=== PATIENT | female | born 2000 | race Caucasian/White ===

== ENCOUNTER 2021-03-06 19:35 | Emergency (ER) | payer OTHER, MEDICAID, SELFPAY ==
[2021-03-06 19:40] VITALS: BP 108/61; PULSE 80; RESP 18; TEMP 36.5; O2SAT 100; BMI 33.7
--- NOTE | 2021-03-06 19:54 | ED.ABDPAIN ---
HPI - Abdominal Pain General Chief Complaint: Urogenital-Female Stated Complaint: SO MANY KIDNEY STONES PAIN Time Seen by Provider: 03/06/21 19:48 History of Present Illness HPI narrative: Patient here with significant other. She patient is 18 weeks followed by [facility] in [place], Dr. alvarez, here for left flank pain no nausea vomiting or fever. Complains of hematuria starting this morning seen by urgent care [facility], ultrasound of the kidney shows renal stones. No prescriptions given. History kidney stone when she was 14 years of age Related Data Previous Rx's Medication Instructions Recorded cephalexin 500 mg capsule 500 mg PO QID #20 cap 03/06/21 hydrocodone 5 mg-acetaminophen 325 1 tab PO Q6H PRN #14 tab 03/06/21 mg tablet ondansetron 4 mg disintegrating 4 mg PO Q6H PRN #10 tab 03/06/21 tablet tamsulosin 0.4 mg capsule 0.4 mg PO DAILY #7 cap 03/06/21 Allergies Allergy/AdvReac Type Severity Reaction Status Date / Time No Known Drug Allergies Allergy Verified 03/06/21 20:59 Review of Systems Review of Systems Narrative: GENERAL: Denies chills, fatigue, malaise, fever, sweats. HEENT: Denies sinus pain, ear pain, sore throat RESPIRATORY: Denies dyspnea, cough CARDIOVASCULAR: Denies chest pain, palpitations GASTROINTESTINAL: Denies nausea, vomiting, abdominal pain, complains of left flank pain : Denies dysuria, frequency, complains hematuria MUSCULOSKELETAL: denies muscle or bony pain SKIN: Denies rash, skin lesions NEUROLOGIC: Denies weakness, numbness ROS Unobtainable: All systems reviewed & are unremarkable except as noted in HPI and below Patient History Social History Smoking Status: Never smoker Exam Narrative Exam Narrative: GENERAL: in no distress, not toxic not dyspneic HEAD: Normocephalic. NECK: Trachea midline. CARDIOVASCULAR: Regular rate and rhythm without murmurs RESPIRATORY: Clear to auscultation. Breath sounds equal bilaterally. No wheezes, rales, or rhonchi. GASTROINTESTINAL: Abdomen soft, non-tender, no CVA tenderness/no flank tenderness, no peritoneal signs BACK: No flank tenderness. NEURO: AOx4. SKIN: Warm and dry PSYCH: Not anxious, is cooperative Initial Vital Signs Initial Vital Signs: Vital Signs Temperature 97.7 F 03/06/21 19:40 Pulse Rate 80 03/06/21 19:40 Respiratory Rate 18 03/06/21 19:40 Blood Pressure 108/61 03/06/21 19:40 Pulse Oximetry 100 03/06/21 19:40 Course Course Course Narrative: No new issues during course of stay. Not toxic Orders Ordered: ED Orders 03/06/21 20:12 Urinalysis and Microscopic Stat 03/06/21 20:20 Complete Blood Count AUTO DIFF Stat Comprehensive Metabolic Panel Stat Discontinued Medications Hydrocodone Bitart/Acetaminophen (Hydrocodone/Acet 5/325 Tablet) 2 tab PO NOW ONE Stop: 03/06/21 20:30 Last Admin: 03/06/21 20:36 Dose: 1 tab Documented by: ABHISHEK Hydrocodone Bitart/Acetaminophen (Hydrocodone/Acet 5/325 Prepack) 1 bottle MISC SEEINSTR ONE Stop: 03/06/21 21:41 Last Admin: 03/06/21 21:46 Dose: 1 bottle Documented by: MAGGIE Cephalexin HCl (Cephalexin 250 Mg Capsule) 500 mg PO NOW ONE Stop: 03/06/21 20:53 Last Admin: 03/06/21 21:03 Dose: 500 mg Documented by: ABHISHEK Ondansetron HCl (Ondansetron 4 Mg Odt) 4 mg SL NOW ONE Stop: 03/06/21 20:30 Last Admin: 03/06/21 20:36 Dose: 4 mg Documented by: ABHISHEK Ondansetron HCl (Ondansetron 4 Mg Odt Prepack) 1 bottle MISC SEEINSTR ONE Stop: 03/06/21 21:41 Last Admin: 03/06/21 21:46 Dose: 1 bottle Documented by: MAGGIE Tamsulosin HCl (Tamsulosin 0.4 Mg Capsule) 0.4 mg PO NOW ONE Stop: 03/06/21 20:53 Last Admin: 03/06/21 21:03 Dose: 0.4 mg Documented by: ABHISHEK Reevaluation(s) Reevaluation #1: Reviewed with patient results and treatment plan. She agrees with follow-up with Urology and OBGYN Time: 20:53 Consultations Consultation #1: s/w dr santiago, ob oncall for dr alvarez, agrees with hydrocodone, Zofran, Flomax, Keflex. Patient to call Dr. alvarez office in the morning for recheck this week. Time: 20:54 Consultation #2: Spoke with Urology, Dr. Keen, she agrees with treatment plan. Patient to follow-up tomorrow for progress and update Time: 21:27 Vital Signs Vital signs: Vital Signs - 8 hr 03/06/21 19:40 03/06/21 21:52 Temperature 97.7 F Pulse Rate 80 80 Respiratory Rate 18 18 Blood Pressure 108/61 115/78 Pulse Oximetry 100 100 MDM - Abdominal Pain Differential Diagnosis Differential diagnosis: Likely other (Pyelonephritis/ureteral stone/UTI) Medical Records Medical records narrative: Ultrasound faxed over from [facility]. Pelvic ultrasound transvaginal impression single living intrauterine gestation. No acute process. Renal ultrasound from [facility] faxed impression mild left hydronephrosis. No right hydronephrosis. No suspicious solid masses or lesions. Lab Data Result diagrams: 03/06/21 20:20 03/06/21 20:20 Labs: Lab Results 03/06/21 03/06/21 03/06/21 Range/Units 20:12 20:20 20:20 WBC 9.2 (4.5-11.0) X10^3/uL RBC 4.67 (4.0-5.2) X10^6/uL Hgb 12.7 (12.0-16.0) g/dL Hct 37.8 (36-46) % MCV 81.0 (80-100) fL MCH 27.2 (26-34) PG MCHC 33.6 (30-36) % RDW 13.7 (11.6-14.8) % Plt Count 319 (150-400) X10^3/uL Neut % (Auto) 72.2 (50-75) % Lymph % (Auto) 19.0 L (25-40) % [place] % (Auto) 6.6 (3-14) % Eos % (Auto) 1.1 L (2-4) % Baso % (Auto) 1.1 (0-2) % Neut # (Auto) 6600 (7715-6570) /uL Lymph # (Auto) 1800 (3612-1372) /uL [place] # (Auto) 600 (0-900) /uL Eos # (Auto) 100 (0-450) /uL Baso # (Auto) 100 (0-100) /uL Sodium 135 L (137-145) mmol/L Potassium 3.8 (3.4-5.1) mmol/L Chloride 107 (98-107) mmol/L Carbon Dioxide 23 (22-32) mmol/L BUN 8 (7-17) mg/dL Creatinine 0.49 L (0.52-1.04) mg/dL Estimated GFR > 60.0 (>60) mL/min BUN/Creatinine Ratio 16.3 (6-22) Glucose 87 (70-100) mg/dL Calcium 9.1 (8.4-10.2) mg/dL Total Bilirubin 0.2 (0.2-1.3) mg/dL AST 19 (14-36) IU/L ALT 18 (<35) IU/L Alkaline Phosphatase 86 (38-126) U/L Total Protein 6.9 (6.3-8.2) g/dL Albumin 3.7 (3.5-5.0) g/dL Globulin 3.2 (1.7-4.1) g/dL Albumin/Globulin Ratio 1.2 (1.0-2.8) Urine Color Yellow Urine Appearance Cloudy Urine pH 7.0 (4.5-8.0) Ur Specific [place] 1.020 (1.000-1.035) Urine Protein Trace H (Negative) Urine Glucose (UA) Trace H (Negative) g/dL Urine Ketones Negative (NEGATIVE) Urine Occult Blood 3+ H (Negative) Urine Nitrate Negative (Negative) Urine Bilirubin Negative (NEGATIVE) Urine Urobilinogen 0.2 (0.2) E.U./dL Ur Leukocyte Esterase 1+ H (NEGATIVE) Urine RBC 30-100/hpf H (0-5/HPF) Urine WBC 0-1/hpf (0-5/HPF) Ur Squamous Epith Cells 10-30 /hpf H (0-5/HPF) Amorphous Sediment 1+ Urine Bacteria Few (2-10) H (None) Ur Culture Indicated? Cult not indicated MDM Narrative Medical decision making narrative: Appropriate for discharge home. Patient and on-call OBGYN degrees no CT scan imaging at this time given gestation at 18 weeks. Treat clinic for kidney stone/ureteral stone., no fever. White cell count normal. Likely not infected kidney stone. No pyelonephritis. No CVA tenderness. Return precautions reviewed patient. Not toxic at discharge. Pain controlled. Discharge Plan Departure Patient Disposition: Home Clinical Impression: Flank pain Instructions: DI for Kidney Infection, DI for Kidney Stones Activity Restrictions/Additional Instructions: No driving or operating machinery tonight or when taking prescribed pain medication. Call your OBGYN office in the morning for office recheck this week. Call provided urology office tomorrow for office recheck of your flank pain/possible kidney stone. Return if worse if any questions concerns or any fever vomiting or increase back pain. Prescriptions: New tamsulosin 0.4 mg capsule 0.4 mg PO DAILY Qty: 7 RF: 0 cephalexin 500 mg capsule 500 mg PO QID Qty: 20 RF: 0 hydrocodone-acetaminophen 5-325 mg tablet 1 tab PO Q6H PRN (Reason: pain) Qty: 14 RF: 0 ondansetron 4 mg tablet,disintegrating 4 mg PO Q6H PRN (Reason: nausea and vomiting) Qty: 10 RF: 0 Referrals: Maureen Randhawa MD [Non-Staff] - Stand Alone Forms: Work Release Note
[2021-03-06 20:13] LABS: Appearance Urine UA CLOUDY; Bilirubin Urine UA NEGATIVE (NEGATIVE); Color Urine UA YELLOW; Glucose Urine UA TRACE g/dL (Negative); Ketones Urine UA NEGATIVE (NEGATIVE); Leukocyte Esterase Urine UA 1+ (NEGATIVE); Nitrite Urine UA NEGATIVE (Negative); Occult Blood Urine UA 3+ (Negative); Protein Urine UA TRACE (Negative); Urobilinogen Urine UA 0.2 E.U./dL (0.2)
[2021-03-06 20:22] LABS: Amorphous Sediment Urine 1+; Bacteria Urine Few (2-10); Culture Indicated Urine Cult Not Indicated; RBC Urine 30-100/HPF (0-5/HPF); Squamous Epithelial Cell Urine 10-30 /HPF (0-5/HPF); WBC Urine 0-1/HPF (0-5/HPF)
[2021-03-06 20:30] LABS: Add Manual Diff / Slide Review NO; Basophils Absolute Auto 100 /uL (0-100); Basophils Percent Auto 1.1 % (0-2); Eosinophils Absolute Auto 100 /uL (0-450); Eosinophils Percent Auto 1.1 % (2-4); Hematocrit 37.8 % (36-46); Hemoglobin 12.7 g/dL (12.0-16.0); Lymphocytes Absolute Auto 1800 /uL (1100-4500); Mean Corpuscular HGB Conc 33.6 % (30-36); Mean Corpuscular Hemoglobin 27.2 PG (26-34); Monocytes Absolute Auto 600 /uL (0-900); Monocytes Percent Auto 6.6 % (3-14); Neutrophils Absolute Auto 6600 /uL (1500-7000); Neutrophils Percent Auto 72.2 % (50-75); Platelet Count 319 X10^3/uL (150-400); Red Blood Cell Count 4.67 X10^6/uL (4.0-5.2); Red Cell Distribution Width 13.7 % (11.6-14.8); White Blood Cell Count 9.2 X10^3/uL (4.5-11.0)
[2021-03-06] MEDS: HYDROCODONE/ACET 5/325 TABLET 2 TAB PO (20:36)
[2021-03-06] MEDS: ONDANSETRON 4 MG ODT SL (20:36)
[2021-03-06 20:42] LABS: Alanine Aminotransferase 18 IU/L (<35); Albumin 3.7 g/dL (3.5-5.0); Albumin Globulin Ratio 1.2 (1.0-2.8); Alkaline Phosphatase 86 U/L (38-126); Aspartate Aminotransferase 19 IU/L (14-36); BUN Creatinine Ratio 16.3 (6-22); Bilirubin Total 0.2 mg/dL (0.2-1.3); Blood Urea Nitrogen 8 mg/dL (7-17); Calcium 9.1 mg/dL (8.4-10.2); Carbon Dioxide 23 mmol/L (22-32); Chloride 107 mmol/L (98-107); Estimated Glomerular Filt Rate > 60.0 mL/min (>60); Globulin 3.2 g/dL (1.7-4.1); Glucose 87 mg/dL (70-100); HEMOLYSIS < 15 (0-50); Potassium 3.8 mmol/L (3.4-5.1); Sodium 135 mmol/L (137-145); Total Protein 6.9 g/dL (6.3-8.2)
[2021-03-06] MEDS: cephALEXin 250 MG CAPSULE 500 MG PO (21:03)
[2021-03-06] MEDS: TAMSULOSIN 0.4 MG CAPSULE PO (21:03)
--- NOTE | 2021-03-06 21:03 | PC.NURSE ---
Cleared with Dr. Millard that all meds were safe with . He okayed
[2021-03-06] MEDS: HYDROCODONE/ACET 5/325 PREPACK 1 BOTTLE MISC (21:46)
[2021-03-06] MEDS: ONDANSETRON 4 MG ODT PREPACK 1 BOTTLE MISC (21:46)
[2021-03-06 21:52] VITALS: BP 115/78; PULSE 80; RESP 18; O2SAT 100
== END 2021-03-06 21:53 | disposition home or self-care (01) ==
PROVIDERS: Emergency Provider Emergency Medicine
DX: O26.892 Other specified pregnancy related conditions, second trimester (principal); R10.9 Unspecified abdominal pain; Z3A.18 18 weeks gestation of pregnancy
CPT/HCPCS: 36415; 80053; 81001; 85025; 99283

== ENCOUNTER → 2021-03-10 16:45 | Outpatient (CLI) | payer OTHER, MEDICAID, SELFPAY | PROVIDERS: Visit Provider Nurse Practitioner | DX: R10.9 Unspecified abdominal pain (principal) | CPT/HCPCS: 87086 ==

== ENCOUNTER 2021-04-27 11:16 | Emergency (ER) | payer OTHER, MEDICAID, SELFPAY ==
[2021-04-27 11:43] LABS: Bacteria Urine None Seen; Culture Indicated Urine Cult Not Indicated; RBC Urine 1-5/HPF (0-5/HPF); Squamous Epithelial Cell Urine 1-5 /HPF (0-5/HPF); WBC Urine 0-1/HPF (0-5/HPF)
[2021-04-27 11:46] VITALS: BP 142/65; PULSE 101; RESP 18; TEMP 36.6; O2SAT 98; BMI 34.9
--- NOTE | 2021-04-27 12:00 | ED.BACK ---
HPI - Back Pain/Injury General Chief Complaint: Back Pain/Injury Stated Complaint: Lower back pain/26 weeks x14 days Time Seen by Provider: 04/27/21 11:48 Source: patient Mode of arrival: Ambulatory History of Present Illness HPI Narrative: Patient is a 20-year-old female. Here for evaluation of right lower back discomfort. Patient states it has been going on for the past 2 weeks. She is a at 26 weeks . No urinary symptoms. No vaginal bleeding. No fevers. No nausea vomiting. No change in bowel habits. No skin changes. He states that the pain in her lower back is been worsening and she has episodes where the pain becomes so much that she cannot stand. She has been taking Tylenol without any improvement. She states that she was recently diagnosed with kidney stones. This is based off of having blood in her urine and also an ultrasound which showed ?inflammation? in her right kidney. She states that the discomfort she is having now is different than the discomfort that she was having at that time. Related Data Previous Rx's Medication Instructions Recorded cephalexin 500 mg capsule 500 mg PO QID #20 cap 03/06/21 hydrocodone 5 mg-acetaminophen 325 1 tab PO Q6H PRN #14 tab 03/06/21 mg tablet ondansetron 4 mg disintegrating 4 mg PO Q6H PRN #10 tab 03/06/21 tablet tamsulosin 0.4 mg capsule 0.4 mg PO DAILY #7 cap 03/06/21 hydrocodone 5 mg-acetaminophen 325 1 tab PO Q4-6H PRN #7 tab 04/27/21 mg tablet Allergies Allergy/AdvReac Type Severity Reaction Status Date / Time No Known Drug Allergies Allergy Verified 03/10/21 16:59 Review of Systems Gastrointestinal Gastrointestinal: Reports as per HPI and Reports system reviewed and no additional complaints, except as documented Genitourinary Genitourinary: Reports system reviewed and no additional complaints, except as documented and Reports as per HPI Musculoskeletal Musculoskeletal: Reports system reviewed and no additional complaints, except as documented and Reports as per HPI Integumentary/Breasts Skin/Breast: Reports system reviewed and no additional complaints, except as documented and Reports as per HPI Neurologic Neurologic: Reports system reviewed and no additional complaints, except as documented Hematologic/Lymphatic On Anticoagulants: No Patient History Medical History Renal calculi Social History Smoking Status: Never smoker Smoking Status: Never smoker alcohol intake frequency: other Substance Use Type: does not use Exam Initial Vital Signs Initial Vital Signs: Vital Signs Temperature 98 F 04/27/21 11:46 Pulse Rate 101 H 04/27/21 11:46 Respiratory Rate 18 04/27/21 11:46 Blood Pressure 142/65 H 04/27/21 11:46 Pulse Oximetry 98 04/27/21 11:46 HENMT Head: normal to inspection and normocephalic Resp Effort & Inspection: normal respiratory effort Cardio Rate: regular rate GI Palpation: soft and No tender Back/Spine/Pelvis Back: No CVA tenderness Other: Tenderness along the SI joint on the right. Skin General: no rashes or lesions noted Neuro General: patient alert, patient awake and moves all extremities Gait: normal gait Motor: muscle tone normal throughout Extrem General: normal to inspection and capillary refill normal Psych Appearance: grossly normal Course Orders Ordered: ED Orders 04/27/21 11:35 Urine Microscopic Stat 04/27/21 11:36 Urine Microscopic Stat Vital Signs Vital signs: Vital Signs - 8 hr 04/27/21 11:46 Temperature 98 F Pulse Rate 101 H Respiratory Rate 18 Blood Pressure 142/65 H Pulse Oximetry 98 MDM - Back Pain/Injury Lab Data Labs: Lab Results 04/27/21 Range/Units 11:36 Urine RBC 1-5/hpf D (0-5/HPF) Urine WBC 0-1/hpf (0-5/HPF) Ur Squamous Epith Cells 1-5 /hpf D (0-5/HPF) Urine Bacteria None seen (None) Ur Culture Indicated? Cult not indicated Urine Dip Bedside Urine Glucose Negative Bedside Urine Bilirubin - Negative Bedside Urine Ketone - Negative Urine Specific [place] 1.020 Bedside Urine Occult Blood ++ Bedside Urine pH 6.5 Bedside Urine Protein - Negative Bedside Urine Urobilinogen - Negative Bedside Urine Nitrite - Negative Bedside Urine Leukocytes - Negative Esterase MDM Narrative Medical decision making narrative: I have low suspicion that this is a urinary tract infection, low suspicion for pyelonephritis. Low suspicion for pre term labor. I have a high suspicion that this is musculoskeletal in origin. She has been taking Tylenol. She states that she cannot stand because of the discomfort. We did discuss the limitations on the medications that she can take. I told her that this could potentially worsened throughout her . I will send her home with a very short course of opioid pain medication. She understands the risks of this. She will keep all of her scheduled OB appointments. She was given return precautions. She expressed understanding and agreement. Discharge Plan Departure Patient Disposition: Home Clinical Impression: Back pain affecting Instructions: DI for Low Back Pain Activity Restrictions/Additional Instructions: Unfortunately because of your status your limited on the medications that you can take. The medication your prescribed today does cross the placenta an your baby will be exposed to the opioid medication. The prescription was electronically transmitted to [facility] in [place]. This needs to be used in a very limited means and I would recommend that you talk with your primary post tensioning ironworker about this. Any long-term work related restrictions will need to come from either your primary doctor or your OB provider. Prescriptions: New hydrocodone-acetaminophen 5-325 mg tablet 1 tab PO Q4-6H PRN (Reason: pain) Qty: 7 RF: 0 No Action tamsulosin 0.4 mg capsule 0.4 mg PO DAILY Qty: 7 RF: 0 cephalexin 500 mg capsule 500 mg PO QID Qty: 20 RF: 0 hydrocodone-acetaminophen 5-325 mg tablet 1 tab PO Q6H PRN (Reason: pain) Qty: 14 RF: 0 ondansetron 4 mg tablet,disintegrating 4 mg PO Q6H PRN (Reason: nausea and vomiting) Qty: 10 RF: 0 Referrals: Omar Amaro MD [Primary Care Provider] -
[2021-04-27 12:24] VITALS: BP 139/72; PULSE 68; RESP 12; O2SAT 98
== END 2021-04-27 12:25 | disposition home or self-care (01) ==
PROVIDERS: Emergency Provider Emergency Medicine; PCP Obstetrics & Gynecology
DX: O26.892 Other specified pregnancy related conditions, second trimester (principal); M54.50 Low back pain, unspecified; Z3A.26 26 weeks gestation of pregnancy
CPT/HCPCS: 81003; 81015; 99282

== ENCOUNTER 2021-04-29 02:54 | Emergency (ER) | payer OTHER, MEDICAID, SELFPAY ==
[2021-04-29 03:03] VITALS: BP 144/94; PULSE 94; RESP 17; TEMP 36.4; O2SAT 98; BMI 35.7
--- NOTE | 2021-04-29 03:15 | ED.BACK ---
HPI - Back Pain/Injury General Chief Complaint: Back Pain/Injury Stated Complaint: low back pain x2 weeks Time Seen by Provider: 04/29/21 03:14 Source: patient Mode of arrival: Ambulatory Limitations: no limitations History of Present Illness HPI Narrative: This is a 20-year-old female at 26 weeks with complaint of low back pain. Patient has had worsening back pain in her lower lumbar region for the past several weeks. She has had remote issues with back pain but not persistently. Patient states pain is been slowly worsening it is localized to just above the sacrum. It feels like a burning type sensation. She finds some relief when she bends forward. Patient denies any radiation of pain into her lower extremities. No loss of bowel or bladder control. No numbness, tingling or weakness. She denies any flank pain. No dysuria, urgency or frequency. No other GI or urinary symptoms. No radiation of pain to the front or anterior. Does not cramping in nature. Patient has had Galt which has been mildly helpful. She has tried Tylenol as well which is sometimes helpful. 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 She states they were quite large and ?pushing on things and ?. She has not had any other back surgeries. She denies any other daily medications. No known drug allergies. Related Data Previous Rx's Medication Instructions Recorded cephalexin 500 mg capsule 500 mg PO QID #20 cap 03/06/21 hydrocodone 5 mg-acetaminophen 325 1 tab PO Q6H PRN #14 tab 03/06/21 mg tablet ondansetron 4 mg disintegrating 4 mg PO Q6H PRN #10 tab 03/06/21 tablet tamsulosin 0.4 mg capsule 0.4 mg PO DAILY #7 cap 03/06/21 hydrocodone 5 mg-acetaminophen 325 1 tab PO Q4-6H PRN #7 tab 04/27/21 mg tablet Allergies Allergy/AdvReac Type Severity Reaction Status Date / Time No Known Drug Allergies Allergy Verified 03/10/21 16:59 Review of Systems Review of Systems ROS Unobtainable: All systems reviewed & are unremarkable except as noted in HPI and below Patient History Medical History Renal calculi Social History Smoking Status: Never smoker Smoking Status: Never smoker alcohol intake frequency: other Substance Use Type: does not use Exam Narrative Exam Narrative: GENERAL: Alert and oriented x three, female in mild distress. HEENT: Head normocephalic, atraumatic, EOMI, pupils reactive, face symmetric, moist mucous membranes NECK: Supple, full range of motion CARDIOVASCULAR: Regular rate and rhythm without murmurs, rubs or gallops. RESPIRATORY: Breath sounds equal bilaterally, no wheezes rales or rhonchi. ABDOMEN: Soft, nontender. Normoactive bowel sounds all 4 quadrants. No guarding or rebound, rigidity, no mass. Gravid. Age appropriate for dates. : No CVA tenderness BACK: No cervical, thoracic or lumbar vertebral point tenderness. Patient has some mild tenderness just the left the lumbosacral joint. No warmth, erythema or other changes. Has normal range of motion. Patient's gait is normal. Muscle strength is 5/5 in lower extremities. Neurovascularly intact. EXTREMITIES: Normal range of motion, no clubbing or edema. Neurovascularly intact NEUROLOGICAL: Cranial nerves II through XII grossly intact. Moving all extremities SKIN: Warm, dry, no petechiae, no rashes or lesions. Initial Vital Signs Initial Vital Signs: Vital Signs Temperature 97.5 F L 04/29/21 03:03 Pulse Rate 94 H 04/29/21 03:03 Respiratory Rate 17 04/29/21 03:03 Blood Pressure 144/94 H 04/29/21 03:03 Pulse Oximetry 98 04/29/21 03:03 Course Orders Ordered: Discontinued Medications Hydrocodone Bitart/Acetaminophen (Hydrocodone/Acet 5/325 Prepack) 1 bottle [facility] SEE[facility] ONE Stop: 04/29/21 03:44 Last Admin: 04/29/21 03:51 Dose: 1 bottle Documented by: HEATHER Vital Signs Vital signs: Vital Signs - 8 hr 04/29/21 03:03 04/29/21 03:58 Temperature 97.5 F L Pulse Rate 94 H 98 H Respiratory Rate 17 20 Blood Pressure 144/94 H 138/89 Pulse Oximetry 98 98 MDM - Back Pain/Injury MDM Narrative Medical decision making narrative: Patient had a long discussion that low back pain can often occur or be exacerbated by secondary to typical changes to her hormones, and physiology and anatomy from being . Patient also notes she has had quite a bit of weight gain as well. Patient I discussed that x-ray imaging, CT and ultrasound would not SOB helpful imaging at this point. Her exam is reassuring in terms of no acute neurologic changes. She is adamant this is not her kidneys or other cause and does not feel she needs to have her urine checked. Patient's physical exam seems more consistent with musculoskeletal in nature as well. Patient and I discussed that she relates to follow-up with her weapons electrical engineering officer or a primary care for referral. PT, massage therapy, manipulation male be helpful. Neurontin or gabapentin may be helpful if her provider feels this is appropriate. She is not having you radiculopathy type symptoms so this may be less effective. Discharge Plan Departure Patient Disposition: Home Clinical Impression: Back pain affecting Instructions: DI for Low Back Pain Activity Restrictions/Additional Instructions: Back pain is common and often worsens during . Talk with your weapons electrical engineering officer they may be able to refer you for physical therapy or other alternative options for treatment. Call first thing in the morning to follow up. Included is referral to Dr. Brown for an option for primary care, she also does perform manipulation which may be an option as well. You may take Tylenol up to a 1000 mg every 8 hours as needed for pain. If an adequate you may take pain medication as prescribed instead of Tylenol. If you feel you need a more long-term prescription for pain medication ED need to follow up with primary care or your OBGYN for this. You can ask your nursing home assistant administrator if neurontin or gabapentin would be an appropriate option for additional pain control. Please return for new weakness, loss of sensation in your lower extremities or groin/perineum, loss of bowel or for bladder control, fevers, persistent vomiting, black or bloody stools, pain that moves to your abdomen or other new concerning symptoms. Prescriptions: No Action tamsulosin 0.4 mg capsule 0.4 mg PO DAILY Qty: 7 RF: 0 cephalexin 500 mg capsule 500 mg PO QID Qty: 20 RF: 0 hydrocodone-acetaminophen 5-325 mg tablet 1 tab PO Q6H PRN (Reason: pain) Qty: 14 RF: 0 ondansetron 4 mg tablet,disintegrating 4 mg PO Q6H PRN (Reason: nausea and vomiting) Qty: 10 RF: 0 hydrocodone-acetaminophen 5-325 mg tablet 1 tab PO Q4-6H PRN (Reason: pain) Qty: 7 RF: 0 Referrals: Omar Amaro MD [Primary Care Provider] - Cristina Brown DO [Physician] -
[2021-04-29] MEDS: HYDROCODONE/ACET 5/325 PREPACK 1 BOTTLE MISC (03:51)
[2021-04-29 03:58] VITALS: BP 138/89; PULSE 98; RESP 20; O2SAT 98
== END 2021-04-29 03:59 | disposition home or self-care (01) ==
PROVIDERS: Emergency Provider Emergency Medicine; PCP Obstetrics & Gynecology
DX: O26.892 Other specified pregnancy related conditions, second trimester (principal); M54.50 Low back pain, unspecified; Z3A.26 26 weeks gestation of pregnancy
CPT/HCPCS: 99281

== ENCOUNTER → 2022-05-21 01:26 | Emergency (ER) | payer OTHER, MEDICAID, SELFPAY ==
[2022-05-21 01:04] VITALS: BP 146/80; PULSE 113; RESP 19; TEMP 36.1; O2SAT 97; BMI 37.8
[2022-05-21] MEDS: DOXYCYCLINE HYCLATE 100 MG TABLET PO (01:23)
--- NOTE | 2022-05-21 01:26 | ED_ITS ---
HPI - Skin/Abscess/Foreign Bdy General Chief complaint: Skin/Abscess/Foreign Body Stated complaint: post surg.05/09/ on right wrist/infected/fever Time Seen by Provider: 05/21/22 01:02 PST Source: patient Mode of arrival: Ambulatory History of Present Illness HPI narrative: 21-year-old female nonsmoker with recent right wrist surgery on May 09 presents with a chief complaint of redness and some pain in the region the incision overlying her right wrist. She had been seen and evaluated in the aftermath and her surgeon remove sutures and thought the erythema she was having was likely a reaction to either the Steri-Strips or sutures. She denies any drainage, red streaks or significant swelling but does have ongoing redness that she thinks is getting worse. She did have a low-grade fever tonight and denies runny nose, sore throat or cough. She is had no chest pain or shortness of breath. She is actively breast-feeding. Related Data Previous Rx's Medication Instructions Recorded cephalexin 500 mg capsule 500 mg PO QID #20 caps 03/06/21 hydrocodone 5 mg-acetaminophen 325 1 tab PO Q6H PRN pain #14 tabs 03/06/21 mg tablet ondansetron 4 mg disintegrating 4 mg PO Q6H PRN nausea and 03/06/21 tablet vomiting #10 tabs tamsulosin 0.4 mg capsule 0.4 mg PO DAILY #7 caps 03/06/21 hydrocodone 5 mg-acetaminophen 325 1 tab PO Q4-6H PRN pain #7 tabs 04/27/21 mg tablet doxycycline hyclate 100 mg tablet 100 mg PO BID #20 tabs 05/21/22 Allergies Allergy/AdvReac Type Severity Reaction Status Date / Time No Known Drug Allergies Allergy Verified 05/21/22 01:04 PST Review of Systems Review of Systems Narrative: GENERAL: See HPI HEENT: Denies sinus pain, ear pain, sore throat, difficulty swallowing, dizziness. RESPIRATORY: Denies dyspnea, cough, wheezing, hemoptysis, sputum. CARDIOVASCULAR: Denies chest pain, palpitations, orthopnea, edema, GASTROINTESTINAL: Denies nausea, vomiting, abdominal pain, diarrhea, constipation, melena. : Denies dysuria, frequency, incontinence, hematuria, urinary retention. MUSCULOSKELETAL: denies weakness, joint pain, or bony pain SKIN: See HPI NEUROLOGIC: Denies weakness, headache, numbness, change in speech, confusion, seizures, incoordination. PSYCHIATRIC: No concerning psychosocial issues. 12 point review of systems is negative except for those stated above Patient History Medical History (Reviewed 05/21/22 @ 01:27 PST by Yung Grace DO) Renal calculi Social History (Reviewed 05/21/22 @ 01:27 PST by Yung Grace DO) Smoking Status: Never smoker Smoking Status: Never smoker alcohol intake frequency: other Substance Use Type: does not use Exam Narrative Exam Narrative: GENERAL: [21] year old patient appears stated age. Well-developed patient, in mild distress. HEAD: Atraumatic. Normocephalic. EYES: Pupils equal round and reactive. Extraocular motions intact. No scleral icterus. No injection or drainage. ENT: Nose without bleeding, purulent drainage. Throat without erythema, tonsillar hypertrophy or exudate. Airway patent. NECK: Trachea midline. Non tender CARDIOVASCULAR: Regular rate and rhythm without murmurs, gallops, or rubs. RESPIRATORY: Clear to auscultation. Breath sounds equal bilaterally. No wheezes, rales, or rhonchi. GASTROINTESTINAL: Abdomen soft, non-tender, nondistended. EXTREMITIES: 3 x 2 cm area of erythema overlying the incision site without any induration or fluctuance nor lymphangitis. There is no drainage or dehiscence of the wound. There is a slightly irregular border uneven perhaps very very s mall vesicles erupting at the leading edge. BACK: Nontender without deformity or crepitance. No flank tenderness. NEURO: AOx3. SKIN: No rash or erythema of visible areas Initial Vital Signs Initial Vital Signs: Vital Signs Temperature 96.9 F L 05/21/22 01:04 PST Pulse Rate 113 H 05/21/22 01:04 PST Respiratory Rate 19 05/21/22 01:04 PST Blood Pressure 146/80 H 05/21/22 01:04 PST Pulse Oximetry 97 05/21/22 01:04 PST Oxygen Delivery Method 05/21/22 01:04 PST Course Orders Ordered: Discontinued Medications Doxycycline Hyclate (Doxycycline Hyclate 100 Mg Tablet) 100 mg PO NOW ONE Stop: 05/21/22 01:20 PST Last Admin: 05/21/22 01:23 PST Dose: 100 mg Documented By: CONSTANTINE Vital Signs Vital signs: Vital Signs - 8 hr 05/21/22 01:04 PST Temperature 96.9 F L Pulse Rate 113 H Respiratory Rate 19 Blood Pressure 146/80 H Pulse Oximetry 97 Oxygen Delivery Method Room Air MDM - Skin/Abscess/Foreign Bdy MDM Narrative Medical decision making narrative: Patient has a very reassuring history and physical exam. There is some question as to the obvious source of the erythema including infection versus reaction. We did discuss that labs and imaging would likely be of little use given her minimal findings. Patient did disclose that she is , doxycycline chosen for staph, strep and MRSA coverage, safe in lactating mother's when used for duration 3 weeks or less. Return precautions discussed and questions answered to her apparent satisfaction Discharge Plan Departure Patient Disposition: Home Clinical Impression: Cellulitis of right wrist Instructions: DI for Cellulitis -- Adult Activity Restrictions/Additional Instructions: *You have been diagnosed with [right wrist cellulitis] *What to do: *Please continue to take your regular medications as directed. [ x] New medication prescriptions sent to your pharmacy: [[facility] ] [ ] New medication written as a paper prescription [ ] No new medications given *Please follow up with your primary care provider in 2-3 days, call for an appointment. Let them know you were seen in the Emergency Department and that we ask that you be seen in follow up. We will electronically transmit a record of today's note if your PCP is in our system *Return to Emergency Department if you should have any new, worsening or concerning symptoms, such as [fever greater than 101 F, shaking chills, worsening pain, persistent vomiting or other bothersome symptoms] Prescriptions: New doxycycline hyclate 100 mg tablet 100 mg PO BID Qty: 20 0RF No Action tamsulosin 0.4 mg capsule 0.4 mg PO DAILY Qty: 7 0RF cephalexin 500 mg capsule 500 mg PO QID Qty: 20 0RF hydrocodone-acetaminophen 5-325 mg tablet 1 tab PO Q6H PRN (Reason: pain) Qty: 14 0RF ondansetron 4 mg tablet,disintegrating 4 mg PO Q6H PRN (Reason: nausea and vomiting) Qty: 10 0RF hydrocodone-acetaminophen 5-325 mg tablet 1 tab PO Q4-6H PRN (Reason: pain) Qty: 7 0RF Referrals: Mikayla Ma ARNP, DIRECTOR OF INSTITUTIONAL RESEARCH-C [Primary Care Provider] - Visit Report Forms: Patient Portal/API
== END | disposition home or self-care (01) ==
PROVIDERS: Emergency Provider Emergency Medicine; PCP Nurse Practitioner Family
DX: L03.113 Cellulitis of right upper limb (principal)
CPT/HCPCS: 99283